=== PATIENT | male | born 1940 | race Caucasian/White ===

== ENCOUNTER 2017-07-07 12:49 | Day surgery (SDC) | payer MEDICARE, OTHER ==
[~2017-07-07 12:49] MED LIST: ALFU10TA2 PO; ALLO300T2 PO; ASPI81TA82 PO; DILT180C56 PO; FLON0.053; LOTE20TA3 PO; METO25 PO; MULTTAB23; OMEG100037
[2017-07-07 13:00] VITALS: BP 135/81; PULSE 63; RESP 18; TEMP 97.5; O2SAT 95
[2017-07-07] MEDS ORDERED: ALLO300T2 PO (13:06)
[2017-07-07] MEDS ORDERED: ALFU10TA2 PO (13:06)
[2017-07-07] MEDS ORDERED: ASPI81CH6 CHEW (13:07)
[2017-07-07] MEDS ORDERED: CARD180C5 PO (13:07)
[2017-07-07] MEDS ORDERED: FLUT1SPR5 EACH NARE (13:08)
[2017-07-07] MEDS ORDERED: METO25TA3 PO (13:10)
[2017-07-07] MEDS ORDERED: CENTCHW4 CHEW (13:10)
[2017-07-07] MEDS ORDERED: OMEG1CAP28 PO (13:11)
[2017-07-07] MEDS ORDERED: TRIAMCINOLONE ACETONIDE 40 MG/ML VIAL ONE ×2 (14:04→14:05)
[2017-07-07 14:40] VITALS: BP 150/92; PULSE 61; RESP 18; TEMP 97.8; O2SAT 94
--- NOTE | 2017-07-07 15:49 | RADRPT ---
EXAM DATE/TIME: 07/07/2017 14:07 [facility] COMPARISON: No previous studies available for comparison. INDICATIONS : Patient presents with pain and numbness in left foot. MEDICAL HISTORY : Cervical Neuropathy RA Apnea GERD SURGICAL HISTORY : Appendectomy Cholecystectomy ENCOUNTER: Initial ACUITY: 1 month PAIN SCORE: 0/10 FLUORO TIME: 2 minutes IMAGE SERIES: 1 CONTRAST: 6 cc Omnipaque (iohexol) 300 ACCESS LEVEL: Left L5-S1 MEDICATION(S): 1.) 1 cc triamcinolone (Kenalog) IA 2.) 1 cc Lidocaine IA RESPONSE: Pre procedure pain level was 0/10. Post procedure pain level was 0/10. PROCEDURE : Fluoroscopically guided facet injection. The risks, benefits and alternatives to the procedure were explained and verbal and written consent w as obtained. The site was prepped in sterile fashion. Full sterile technique was used, including ca p, mask, sterile gloves and gown and a large sterile sheet. Hand hygiene and 2% chlorhexidine and/or betadine/alcohol prep was utilized per protocol for cutaneous antisepsis. The skin and subcutaneous tissues were infiltrated with local anesthetic solution. With fluoroscopic guidance the targeted facet was localized and positive contrast was injected to con firm intra-articular position. The prescribed medications were injected into the facet joint. The pat ient's pre and post procedure pain levels were recorded. CONCLUSION: Uncomplicated fluoroscopically guided facet injection as above. Omero Trinidad MD on July 07, 2017 at 15:47 Board Certified Radiologist. This report was verified electronically.
--- NOTE | 2017-07-07 15:51 | RADRPT ---
EXAM DATE/TIME: 07/07/2017 14:07 [facility] COMPARISON: No previous studies available for comparison. INDICATIONS : Patient presents with numbness and pain in left foot. MEDICAL HISTORY : Cervical Neuropathy Lumbar Spondylosis RA GERD SURGICAL HISTORY : Appendectomy Cholecystectomy ENCOUNTER: Initial ACUITY: 1 month PAIN SCORE: 0/10 FLUORO TIME: 2 minutes IMAGE SERIES: 1 CONTRAST: 6 cc Omnipaque (iohexol) 300 ACCESS LEVEL: Right L5-S1 MEDICATION(S): 1.) 1 cc triamcinolone (Kenalog) IA 2.) 1 cc Lidocaine IA RESPONSE: Pre procedure pain level was 0/10. Post procedure pain level was 0/10. PROCEDURE : Fluoroscopically guided facet injection. The risks, benefits and alternatives to the procedure were explained and verbal and written consent w as obtained. The site was prepped in sterile fashion. Full sterile technique was used, including ca p, mask, sterile gloves and gown and a large sterile sheet. Hand hygiene and 2% chlorhexidine and/or betadine/alcohol prep was utilized per protocol for cutaneous antisepsis. The skin and subcutaneous tissues were infiltrated with local anesthetic solution. With fluoroscopic guidance the targeted facet was localized and positive contrast was injected to con firm intra-articular position. The prescribed medications were injected into the facet joint. The pat ient's pre and post procedure pain levels were recorded. CONCLUSION: Uncomplicated fluoroscopically guided facet injection as above. Omero Trinidad MD on July 07, 2017 at 15:48 Board Certified Radiologist. This report was verified electronically.
== END 2017-07-07 15:17 | disposition home or self-care (01) ==
LOC: HROP 12:49 → HRIP 12:50 → HROP 15:17
PROVIDERS: ATTEND Family Medicine
DX: M48.062 Spinal stenosis, lumbar region with neurogenic claudication (principal); M51.26 Other intervertebral disc displacement, lumbar region; M25.572 Pain in left ankle and joints of left foot; M25.571 Pain in right ankle and joints of right foot
CPT/HCPCS: 64493; J3301